=== PATIENT | female | born 1995 | race Two or more races ===

== ENCOUNTER 2019-08-11 18:05 | Emergency (ER) | payer BC, OTHER ==
[~2019-08-11] VITALS: Ht 154.9 cm; Wt 79.4 kg
[2019-08-11 18:51] VITALS: BP 121/76
== END 2019-08-11 19:47 | disposition home or self-care (01) ==
LOC: ER 18:05
DX: M79.641 Pain in right hand (principal); M79.89 Other specified soft tissue disorders
CPT/HCPCS: 73130